=== PATIENT | female | born 1990 | race Caucasian/White ===

== ENCOUNTER → 2017-07-02 | Outpatient (CLI) | payer OTHER ==
--- NOTE | 2017-07-02 12:52 | REP ---
Digital diagnostic bilateral mammography with CAD and focused left breast sonography: History: Intermittent left breast nipple discharge. No comparison breast imaging. Mammographic findings: Scattered fibroglandular elements are seen. Normal appearing lymph nodes are visible in each axilla. No architectural distortion, mass, microcalcification or worrisome skin changes seen. Sonographic findings: The retroareolar region of the left breast is scanned. Normal fibroglandular tissue is seen. No cyst, dilated duct, mass or acoustic shadowing is seen. Impression: BI-RADS/ACR category 1 mammogram. Negative. Routine annual screening mammography (for women over age 40). BI-RADS category 1 negative bilateral breast imaging. Clinical followup is advised. This mammogram was interpreted with the aid of an FDA-approved computer-aided detection system. The patient states she/he had a clinical breast exam in June of 2017. The patient letter being requested is m2. Signed by Hossein Murray MD 07/02/2017 01:09 P
== END ==
LOC: M RAD 06-30 09:05
PROVIDERS: ATTEND Nurse Practitioner Adult Health
DX: N64.52 Nipple discharge (principal)
CPT/HCPCS: 76642; G0204

== ENCOUNTER → 2017-08-15 | Outpatient (CLI) | payer OTHER ==
[2017-08-15 11:39] LABS: ESTIMATED AVERAGE GLUCOSE 105 MG/DL (60-110); HEMOGLOBIN A1c 5.3 %
[2017-08-15 11:43] LABS: CHOLESTEROL LEVEL 215 MG/DL (<200); CHOLESTEROL RISK RATIO 4.777 (<5); HDL CHOLESTEROL 45 MG/DL (>40); LDL CHOLESTEROL 141.4 MG/DL (<100); NON-HDL-C 170 MG/DL; TRIGLYCERIDES LEVEL 143 MG/DL (<150)
== END ==
LOC: M LAB 10:53
DX: E78.5 Hyperlipidemia, unspecified (principal); E66.01 Morbid (severe) obesity due to excess calories
CPT/HCPCS: 83036

== ENCOUNTER → 2018-02-25 | Outpatient (REF) | payer OTHER ==
[2018-02-25 18:41] LABS: CHOLESTEROL LEVEL 214 MG/DL (<200); CHOLESTEROL RISK RATIO 5.487 (<5); HDL CHOLESTEROL 39 MG/DL (>40); NON-HDL-C 175 MG/DL; TRIGLYCERIDES LEVEL 245 MG/DL (<150)
== END ==
LOC: M LAB REF 18:14
DX: E78.5 Hyperlipidemia, unspecified (principal)
CPT/HCPCS: 80061

== ENCOUNTER → 2018-05-21 | Outpatient (REF) | payer OTHER ==
[2018-05-21 18:49] LABS: CHOLESTEROL LEVEL 215 MG/DL (<200); CHOLESTEROL RISK RATIO 5.657 (<5); HDL CHOLESTEROL 38 MG/DL (>40); LDL CHOLESTEROL 135 MG/DL (<100); NON-HDL-C 177 MG/DL; TRIGLYCERIDES LEVEL 211 MG/DL (<150)
== END ==
LOC: M LAB REF 18:18
DX: E78.5 Hyperlipidemia, unspecified (principal)
CPT/HCPCS: 80061

== ENCOUNTER 2024-09-14 12:41 | Inpatient (IN) | payer MEDICAID, OTHER ==
[~2024-09-14] VITALS: Ht 160 cm; Wt 108.1 kg
[2024-09-14 13:35] LABS: HEMATOCRIT 39.3 % (36.0-47.0); HEMOGLOBIN 12.7 g/dl (12.0-15.5); MEAN CORPUSCULAR HEMOGLOBIN 27.3 pg (27.0-33.0); MEAN CORPUSCULAR HGB CONC 32.3 g/dl (32.0-36.5); MEAN CORPUSCULAR VOLUME 84.5 fl (80.0-96.0); PLATELET COUNT, AUTOMATED 388 10^3/uL (150-450); RED BLOOD COUNT 4.65 10^6/uL (4.00-5.40); WHITE BLOOD COUNT 10.9 10^3/uL (4.0-10.0)
[2024-09-14] MEDS ORDERED: CLON0.5T2 PO (14:13)
[2024-09-14 14:20] LABS: ETHYL ALCOHOL (ETHANOL) < 0.003 % (0.000-0.010)
[2024-09-14 14:22] LABS: ALBUMIN 4.2 G/DL (3.2-5.2); ALKALINE PHOSPHATASE 115 U/L (35-104); ALT/SGPT 22 U/L (7.0-40); AST/SGOT 13 U/L (<34); BILIRUBIN,DIRECT 0.2 MG/DL (<0.4); BILIRUBIN,TOTAL 0.7 MG/DL (0.3-1.2); BLOOD UREA NITROGEN 8 MG/DL (9-23); CALCIUM LEVEL 9.6 MG/DL (8.5-10.1); CARBON DIOXIDE LEVEL 23 MMOL/L (20-31); CHLORIDE LEVEL 106 MMOL/L (98-107); CREATININE FOR GFR 0.72 MG/DL (0.55-1.30); GLOMERULAR FILTRATION RATE > 60.0 (>60); GLUCOSE, FASTING 102 MG/DL (60-100); POTASSIUM SERUM 4.3 MMOL/L (3.5-5.1); SALICYLATE LEVEL < 3.0 MG/DL (<30); SODIUM LEVEL 141 MMOL/L (136-145); THYROID STIMULATING HORMONE 3.318 uIU/ML (0.55-4.78); TOTAL PROTEIN 7.8 G/DL (5.7-8.2)
[2024-09-14] MEDS: clonazePAM 0.5 MG TAB PO PRN (14:26)
[2024-09-14] MEDS ORDERED: HOME MED LIST COMPLETE! XX SCH (14:45)
[2024-09-14] MEDS ORDERED: LURA40TA2 PO (14:45)
[2024-09-14 15:21] LABS: AMPHETAMINES LEVEL URINE NEGATIVE (NEGATIVE); BARBITURATES URINE NEGATIVE (NEGATIVE); BENZODIAZEPINES URINE NEGATIVE (NEGATIVE); CANNABINOIDS URINE NEGATIVE (NEGATIVE); COCAINE METABOLITE URINE NEGATIVE (NEGATIVE); METHADONE URINE NEGATIVE (NEGATIVE); OPIATES URINE NEGATIVE (NEGATIVE); PHENCYCLIDINE URINE NEGATIVE (NEGATIVE)
[2024-09-14 17:40] VITALS: BP 137/75; TEMP 98.6; O2SAT 97
[2024-09-14 19:14] LABS: HCG, SERUM QUALITATIVE NEGATIVE (NEGATIVE)
[2024-09-14] MEDS ORDERED: MAALOX 30 ML SUSP *UDC PO PRN (19:20)
[2024-09-14] MEDS ORDERED: MOM 30ML SUSPENSION UDC PO PRN (19:20)
[2024-09-14] MEDS ORDERED: ACETAMINOPHEN 325 MG TAB PO PRN (19:20)
[2024-09-14] MEDS ORDERED: IBUPROFEN 400MG TAB PO PRN (19:20)
[2024-09-14] MEDS ORDERED: diphenhydrAMINE 25MG CAP PO PRN (19:20)
[2024-09-14] MEDS: traZODone 50 MG TAB PO PRN (21:33)
[2024-09-15 06:44] VITALS: BP 136/63; TEMP 99.2; O2SAT 95
[2024-09-15] MEDS: OLANZapine ORAL DISINTEGRATING TAB 5MG PO PRN (13:04)
[2024-09-15] MEDS: ESCITALOPRAM OXALATE 10 MG TAB (LEXAPRO) PO SCH (13:27)
[2024-09-15 15:44] VITALS: BP 120/68; TEMP 98.6; O2SAT 97
[2024-09-15] MEDS: LURASIDONE HCL 40MG TAB (LATUDA) PO SCH (18:16)
[2024-09-16 06:31] VITALS: BP 122/66; TEMP 97.7; O2SAT 95
[2024-09-16] MEDS ORDERED: TRAZ-252 PO (09:19)
[2024-09-16] MEDS ORDERED: LEXA1TAB PO (09:19)
== END 2024-09-16 13:15 | disposition home or self-care (01) | DRG 754 ==
LOC: M ED 12:41 → M ED INP 16:10 → M PSY 17:32
PROVIDERS: ADMIT Psychiatry & Neurology Psychiatry; ATTEND Psychiatry & Neurology Psychiatry
DX: F32.9 Major depressive disorder, single episode, unspecified (principal); R45.851 Suicidal ideations; F41.1 Generalized anxiety disorder; F43.10 Post-traumatic stress disorder, unspecified; D72.829 Elevated white blood cell count, unspecified; Z79.899 Other long term (current) drug therapy